=== PATIENT | female | born 2000 | race Caucasian/White ===

== ENCOUNTER 2023-01-21 21:57 | Emergency (ER) | payer OTHER | END 2023-01-21 23:45 | disposition home or self-care (01) | LOC: CSHERS 21:57 | DX: O99.512 Diseases of the respiratory system complicating pregnancy, second trimester (principal); K59.00 Constipation, unspecified; O99.332 Smoking (tobacco) complicating pregnancy, second trimester; F17.290 Nicotine dependence, other tobacco product, uncomplicated; Z3A.19 19 weeks gestation of pregnancy | CPT/HCPCS: 76815 ==